=== PATIENT | female | born 1985 | race Caucasian/White ===

== ENCOUNTER 2022-07-05 02:40 | Emergency (ER) | payer MEDICAID ==
[~2022-07-05] VITALS: Ht 170.2 cm; Wt 102.3 kg
[2022-07-05 03:02] VITALS: BP 141/87
[2022-07-05] MEDS ORDERED: dexamethasone sod phosphate 10mg/ml inj IV STA (09:13)
[2022-07-05] MEDS ORDERED: ketorolac trometh. 30mg/ml inj. IV ONE (09:15)
[2022-07-05] MEDS ORDERED: ondansetron/PF 4mg/2ml inj IV ONE (09:15)
[2022-07-05] MEDS ORDERED: normal saline 1000ML IV soln IVB ONE (09:15)
[2022-07-05] MEDS ORDERED: NAPR-56 PO (09:57)
[2022-07-05] MEDS ORDERED: ORPH100T2 PO (09:57)
== END 2022-07-05 11:08 | disposition home or self-care (01) ==
LOC: ER 02:43
DX: S13.4XXA Sprain of ligaments of cervical spine, initial encounter (principal); G43.909 Migraine, unspecified, not intractable, without status migrainosus; F17.200 Nicotine dependence, unspecified, uncomplicated; Z88.2 Allergy status to sulfonamides; Z79.899 Other long term (current) drug therapy; V87.7XXA Person injured in collision between other specified motor vehicles (traffic), initial encounter; Y93.89 Activity, other specified; Y92.89 Other specified places as the place of occurrence of the external cause; Y99.8 Other external cause status
CPT/HCPCS: 96374; 96375; 99284; J1100; J1885; J2405; J7030

== ENCOUNTER 2023-03-03 17:12 | Emergency (ER) | payer MEDICAID ==
[~2023-03-03] VITALS: Ht 170.2 cm; Wt 117.0 kg
[~2023-03-03 17:12] MED LIST: ORPH100T4 PO
[2023-03-03 17:31] VITALS: BP 150/103; PULSE 106; RESP 18; TEMP 98.2; O2SAT 98
== END 2023-03-03 18:25 | disposition left against medical advice (07) ==
LOC: ER 17:13
DX: K08.89 Other specified disorders of teeth and supporting structures (principal); R68.84 Jaw pain; H92.01 Otalgia, right ear; Z53.21 Procedure and treatment not carried out due to patient leaving prior to being seen by health care provider
CPT/HCPCS: 99281

== ENCOUNTER 2023-05-22 01:21 | Emergency (ER) | payer MEDICAID ==
[~2023-05-22] VITALS: Ht 170.2 cm; Wt 118.2 kg
[2023-05-22 01:25] VITALS: BP 133/93; PULSE 107; RESP 14; TEMP 98.6; O2SAT 99
--- NOTE | 2023-05-22 01:49 | NUR ---
This RN reported incident to [facility]. Case #[id number].
[2023-05-22] MEDS ORDERED: acetaminophen 325mg tablet PO ONE (02:05)
== END 2023-05-22 02:21 | disposition home or self-care (01) ==
LOC: ER 01:21
DX: S01.01XA Laceration without foreign body of scalp, initial encounter (principal); Y04.8XXA Assault by other bodily force, initial encounter; Y93.89 Activity, other specified; Y92.89 Other specified places as the place of occurrence of the external cause; Y99.8 Other external cause status
CPT/HCPCS: 12002; 99282; J7030; A6449